=== PATIENT | male | born 1995 | race Hispanic/Latino ===

== ENCOUNTER 2024-03-30 14:26 | Inpatient (IN) | payer MEDICAID ==
[~2024-03-30] VITALS: Ht 177.8 cm; Wt 99.8 kg
[2024-03-30 15:18] LABS: BASOPHILS % 0.2 % (0.0-1.0); HEMATOCRIT 46.1 % (38.2-49.6); HEMOGLOBIN 16.1 g/dL (14.0-18.0); LYMPHOCYTES # (AUTO) 1.1 (1.0-3.2); LYMPHOCYTES % 6.3 % (18.0-39.1); MEAN CORPUSCULAR HEMOGLOBIN 31.4 pg (28-32); MEAN CORPUSCULAR HGB CONC 34.9 g/dL (31-35); MEAN CORPUSCULAR VOLUME 89.9 fL (81-99); MONOCYTES # (AUTO) 1.6 (0.2-0.8); MONOCYTES % 8.9 % (4.4-11.3); NEUTROPHILS # (AUTO) 14.6 (2.1-6.9); NEUTROPHILS % 83.7 % (38.7-80.0); PLATELET COUNT 127 x10e3/uL (140-360); RED BLOOD COUNT 5.13 x10e6/uL (4.3-5.7); RED CELL DISTRIBUTION WIDTH 11.9 % (11.7-14.4); WHITE BLOOD COUNT 17.45 x10e3/uL (4.8-10.8)
[2024-03-30 15:30] LABS: CLARITY,URINE SL CLOUDY (CLEAR); COLOR,URINE ORANGE (YELLOW)
[2024-03-30 15:31] LABS: LEUKOCYTE ESTERASE ,URINE NEGATIVE (NEGATIVE); NITRITE,URINE POSITIVE (NEGATIVE); PH,URINE 6.5 (5 - 7); PROTEIN,URINE DIPSTICK >=300 (NEGATIVE)
[2024-03-30 15:32] LABS: BILIRUBIN,URINE MODERATE (NEGATIVE); GLUCOSE, URINE 1+ (NEGATIVE); KETONES,URINE 1+ (NEGATIVE); URINE UROBILINOGEN >=8 mg/dL (0.2 - 1)
[2024-03-30 15:36] LABS: ALBUMIN 3.4 g/dL (3.5-5.0); ALBUMIN/GLOBULIN RATIO 0.9 (0.8-2.0); ANION GAP 16.7 mmol/L (8-16); BILIRUBIN,TOTAL 3.3 mg/dL (0.2-1.2); CREATININE, SERUM 1.18 mg/dL (0.72-1.25); POTASSIUM 3.7 mmol/L (3.5-5.1); TOTAL PROTEIN 7.2 g/dL (6.5-8.1)
[2024-03-30] MEDS ORDERED: IOPAMIDOL 370 MG/ML 100 ML INFUS..BTL INJ ONE (15:42)
[2024-03-30 15:46] LABS: WBC,URINE (MAN) 0-5 /HPF (0-5)
[2024-03-30 15:47] LABS: BACTERIA,URINE FEW /HPF; EPITHELIAL CELLS,URINE RARE /LPF; MUCUS,URINE FEW (RARE)
[2024-03-30] MEDS: SODIUM CHLORIDE 0.9% 1000ML 1,000 ML IV STA (15:49)
[2024-03-30] MEDS: KETOROLAC TROMETHAMINE 30 MG/ML VIAL IV STA (15:50)
[2024-03-30] MEDS: ONDANSETRON HCL INJ 2MG/ML 2ML 2 MG/ML VIAL IV STA (15:51)
[2024-03-30] MEDS: Morphine 4mg INJECTION 4 MG/ML INJ IV STA (16:52)
[2024-03-30 17:13] VITALS: PULSE 90; RESP 18; TEMP 100
[2024-03-30 17:30] LABS: CORONAVIRUS COVID-19 AG NEGATIVE (NEGATIVE); INFLUENZA A AG NEGATIVE (NEGATIVE); INFLUENZA B AG NEGATIVE (NEGATIVE)
[2024-03-30] MEDS ORDERED: PIPERACILLIN/TAZOBACTAM 3.375 GM VIAL ONE (20:56)
[2024-03-30 22:29] VITALS: BP 119/59; PULSE 115; RESP 18; TEMP 100.3; O2SAT 97
[2024-03-30] MEDS: ONDANSETRON HCL INJ 2MG/ML 2ML 2 MG/ML VIAL IV PRN (22:58)
[2024-03-30] MEDS: SODIUM CHLORIDE 0.9% 1000ML 1,000 ML IV SCH (22:58)
[2024-03-30] MEDS: Morphine 4mg INJECTION 4 MG/ML INJ IV PRN (22:59)
[2024-03-30] MEDS: ACETAMINOPHEN 1000 MG/100 ML IV PRN (23:00)
[2024-03-30 23:15] VITALS: BP 119/59; PULSE 115; RESP 18; TEMP 100.3; O2SAT 97
[2024-03-30] MEDS ORDERED: OMEPRAZOLE40 MG PO (23:16)
[2024-03-30 23:21] VITALS: BP 119/59; PULSE 115; RESP 18; TEMP 100.3; O2SAT 97
[2024-03-31 04:12] VITALS: BP 110/61; PULSE 91; RESP 18; TEMP 98.3; O2SAT 100
[2024-03-31 06:30] LABS: BASOPHILS % 0.1 % (0.0-1.0); EOSINOPHILS % 0.1 % (0.0-6.0); HEMATOCRIT 48.4 % (38.2-49.6); HEMOGLOBIN 15.5 g/dL (14.0-18.0); LYMPHOCYTES # (AUTO) 1.1 (1.0-3.2); LYMPHOCYTES % 7.7 % (18.0-39.1); MEAN CORPUSCULAR HEMOGLOBIN 31.2 pg (28-32); MEAN CORPUSCULAR VOLUME 97.4 fL (81-99); MONOCYTES # (AUTO) 1.4 (0.2-0.8); MONOCYTES % 9.9 % (4.4-11.3); NEUTROPHILS # (AUTO) 11.7 (2.1-6.9); NEUTROPHILS % 81.3 % (38.7-80.0); PLATELET COUNT 92 x10e3/uL (140-360); RED BLOOD COUNT 4.97 x10e6/uL (4.3-5.7); RED CELL DISTRIBUTION WIDTH 11.9 % (11.7-14.4)
[2024-03-31 06:59] LABS: ALBUMIN 3.1 g/dL (3.5-5.0); ALBUMIN/GLOBULIN RATIO 0.8 (0.8-2.0); ANION GAP 17.9 mmol/L (8-16); BILIRUBIN,TOTAL 5.5 mg/dL (0.2-1.2); CALCIUM 8.6 mg/dL (8.4-10.2); CREATININE, SERUM 1.3 mg/dL (0.72-1.25); POTASSIUM 3.9 mmol/L (3.5-5.1)
[2024-03-31 09:07] VITALS: BP 122/67; PULSE 112; RESP 20; TEMP 99.8; O2SAT 97
[2024-03-31 12:05] VITALS: BP 123/69; PULSE 114; RESP 20; TEMP 100; O2SAT 97
[2024-03-31 20:00] VITALS: BP 114/72; PULSE 70; RESP 18; TEMP 98.4; O2SAT 100
[2024-03-31 21:15] VITALS: BP 114/72; PULSE 70; RESP 18; TEMP 98.4; O2SAT 100
[2024-04-01] VITALS (7 sets, daily range): BP systolic 119–130; BP diastolic 65–72; PULSE 99–107; RESP 17–18; TEMP 97.8–100.7; O2SAT 96–98
[2024-04-01] MEDS: FAMOTIDINE 20 MG TAB PO SCH (08:38)
[2024-04-01 13:42] LABS: INR 1.39; PROTHROMBIN TIME 17.8 seconds (11.9-14.5)
[2024-04-01] MEDS ORDERED: LIDOCAINE HCL 1% 30ML-PF VIAL ONE (15:57)
[2024-04-01] MEDS ORDERED: SODIUM CHLORIDE 0.9% 250ML 250 ML ONE ×2 (15:58→16:32)
[2024-04-01] MEDS ORDERED: FENTANYL CITRATE/PF 100MCG/2 ML INJ ONE (16:31)
[2024-04-01] MEDS ORDERED: MIDAZOLAM HCL 2 MG/2 ML VIAL ONE (16:31)
[2024-04-01] MEDS ORDERED: CEFTRIAXONE 1 GM VIAL ONE (16:32)
[2024-04-02] VITALS (8 sets, daily range): BP systolic 108–138; BP diastolic 64–88; PULSE 83–102; RESP 17–20; TEMP 97.3–99.1; O2SAT 97–100
[2024-04-02 15:31] LABS: ALBUMIN 2.4 g/dL (3.5-5.0); ALBUMIN/GLOBULIN RATIO 0.6 (0.8-2.0); ANION GAP 15.1 mmol/L (8-16); CALCIUM 7.9 mg/dL (8.4-10.2); CREATININE, SERUM 0.81 mg/dL (0.72-1.25); TOTAL PROTEIN 6.2 g/dL (6.5-8.1)
[2024-04-02 15:43] LABS: POTASSIUM 3.1 mmol/L (3.5-5.1)
[2024-04-03 00:24] VITALS: BP 127/76; PULSE 83; RESP 18; TEMP 98.6; O2SAT 98
[2024-04-03 04:09] VITALS: BP 131/91; PULSE 84; RESP 17; TEMP 98.8; O2SAT 98
[2024-04-03 06:54] LABS: HEMATOCRIT 39.8 % (38.2-49.6); HEMOGLOBIN 13.4 g/dL (14.0-18.0); MEAN CORPUSCULAR HEMOGLOBIN 30.9 pg (28-32); MEAN CORPUSCULAR HGB CONC 33.7 g/dL (31-35); MEAN CORPUSCULAR VOLUME 91.9 fL (81-99); PLATELET COUNT 183 x10e3/uL (140-360); RED BLOOD COUNT 4.33 x10e6/uL (4.3-5.7); RED CELL DISTRIBUTION WIDTH 12.8 % (11.7-14.4); WHITE BLOOD COUNT 8.22 x10e3/uL (4.8-10.8)
[2024-04-03 07:28] LABS: ALBUMIN 2.5 g/dL (3.5-5.0); ALBUMIN/GLOBULIN RATIO 0.7 (0.8-2.0); ANION GAP 15.3 mmol/L (8-16); BILIRUBIN,TOTAL 1.1 mg/dL (0.2-1.2); CALCIUM 8.1 mg/dL (8.4-10.2); CREATININE, SERUM 0.88 mg/dL (0.72-1.25); TOTAL PROTEIN 6.1 g/dL (6.5-8.1)
[2024-04-03 07:39] LABS: POTASSIUM 3.3 mmol/L (3.5-5.1)
[2024-04-03 08:00] VITALS: BP 131/91; PULSE 84; RESP 17; TEMP 98.8; O2SAT 98
[2024-04-03 08:52] VITALS: BP 137/84; PULSE 81; RESP 18; TEMP 98.2; O2SAT 99
[2024-04-03 17:05] VITALS: BP 132/82; PULSE 81; RESP 19; TEMP 98.4; O2SAT 99
[2024-04-03 20:00] VITALS: BP 135/85; PULSE 84; RESP 18; TEMP 97.3; O2SAT 100
[2024-04-04] VITALS: BP 120/74; PULSE 80; RESP 18; TEMP 98.6; O2SAT 99
[2024-04-04 04:00] VITALS: BP 113/63; PULSE 88; RESP 18; TEMP 98.9; O2SAT 99
[2024-04-04 08:20] VITALS: BP 125/89; PULSE 82; RESP 18; TEMP 98.4; O2SAT 96
[2024-04-04 09:11] VITALS: BP 125/89; PULSE 82; RESP 18; TEMP 98.4; O2SAT 96
[2024-04-04] MEDS ORDERED: BACTRIM DS TAB1 EACH PO (11:52)
[2024-04-04] MEDS ORDERED: ULTRAM 50MG50 MG PO (12:12)
[2024-04-04 12:16] VITALS: BP 128/94; PULSE 90; RESP 17; TEMP 97.8; O2SAT 99
== END 2024-04-04 13:08 | disposition home or self-care (01) | DRG 445 ==
LOC: ER 14:35 → ERHOLD 20:21 → MED/SURG2 22:04
PROVIDERS: ADMIT Internal Medicine; ATTEND Internal Medicine
PROC: 0F9430Z Drainage of Gallbladder with Drainage Device, Percutaneous Approach (ICD-10-PCS; principal; 2024-04-01)
DX: K81.0 Acute cholecystitis (principal); F84.0 Autistic disorder; Z11.52 Encounter for screening for COVID-19; K21.9 Gastro-esophageal reflux disease without esophagitis
CPT/HCPCS: 36415; 49405; 74177; 74181; 74470; 76705; 76942; 80053; 81001; 83605; 83690; 85007; 85025; 85027; 85610; 87040; 87070; 87071; 87075; 87186; 87205; 99152; 99284; C1729; J0696; J1885; J2003; J2250; J2270; J2405; J2543; J7030; J7050; Q9967

== ENCOUNTER 2024-06-03 10:42 | Emergency (ER) | payer MEDICAID ==
[~2024-06-03 10:42] MED LIST: BACTRIM DS TAB1 EACH PO; OMEPRAZOLE40 MG PO; ULTRAM 50MG50 MG PO
[2024-06-03 10:55] VITALS: PULSE 88; RESP 17; TEMP 97.8
[2024-06-03 12:08] VITALS: BP 111/90; PULSE 84; RESP 16; TEMP 97.7; O2SAT 99
[2024-06-03] MEDS ORDERED: CHOLESTYRAMINE378 GM PO (12:08)
== END 2024-06-03 12:28 | disposition home or self-care (01) ==
LOC: ER 10:52
DX: K91.5 Postcholecystectomy syndrome (principal); R10.11 Right upper quadrant pain; R19.7 Diarrhea, unspecified; K21.9 Gastro-esophageal reflux disease without esophagitis; F84.0 Autistic disorder
CPT/HCPCS: 99282